=== PATIENT | male | born 1965 | race Caucasian/White ===

== ENCOUNTER 2016-06-07 08:59 | Emergency (ER) | payer OTHER ==
--- NOTE | 2016-06-07 09:08 | CPEKG ---
Heart Rate: 61 RR Interval: 984 P-R Interval: 116 QRSD Interval: 88 QT Interval: 412 QTC Interval: 415 P [place]: 75 QRS [place]: 85 T Wave [place]: -3 EKG Severity - NORMAL ECG - EKG Impression: SINUS RHYTHM Electronically Signed By: Shane Nathan 07-Jun-2016 15:07:19
--- NOTE | 2016-06-07 09:10 | EDPHY ---
HPI/HX/ROS/PE/MDM Narrative: CHIEF COMPLAINT: Palpitations, tachycardia. HPI: The patient is a 50-year-old male with a history of asthma who presents via EMS after an episode of palpitations and rapid heart rate. He was riding his bike to work this morning as he normally does when he felt his heart racing. He does have a history of similar symptoms but reports this felt worse than ever before. At [facility] his heart rate was 140. He admits associated diaphoresis and left-sided neck pain. On arrival to the ED his symptoms have completely subsided. He denies associated chest pain, shortness of breath, nausea, or other complaints. He denies medication changes. His grandfathers of an MD at age 66. REVIEW OF SYSTEMS: Aside from elements discussed in the HPI, a comprehensive 10-point review of systems was reviewed and is negative. PMH: Asthma. 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 PHYSICAL EXAM: General: Patient is alert, in no acute distress. ENT: Eyes are normal to inspection. ENT inspection normal. Neck: Normal inspection. Full range of motion. Respiratory: No respiratory distress. Breath sounds normal bilaterally. Cardiovascular: Regular rate and rhythm. Strong peripheral pulses. Abdomen: The abdomen is nontender to palpation. There are no peritoneal signs. There are normal bowel sounds. Back: Normal to inspection. No tenderness to palpation. Skin: Normal color. No rash. Warm and dry. Extremities: Normal appearance. Full range of motion. Neuro: Oriented x3. Normal motor function. Normal sensory function. Portions of this note were transcribed by an ED scribe. I personally performed the history, physical exam, and medical decision making; and confirm the accuracy of the information in the transcribed note. ED Course: 50-year-old male with no previous cardiac history presents after an episode of palpitations and tachycardia this morning that began when he was riding his bike. He did not have associated chest pain or shortness of breath. He went to [facility] where an EKG was taken that showed atrial fibrillation with a rate of 140 so he was sent here. He reports a history of similar symptoms but this episode felt the worse. On arrival his symptoms have completely subsided and he has no complaints. He physical exam is normal here. An IV was established and labs ordered including cardiac enzymes. Chest x-ray, EKG obtained. 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 EKG was ordered and interpreted by myself. Please see [employer] system for official reading. I independently reviewed the patient's imaging on the PACS system. Please see Imaging section for radiologist report. 1019: [facility] will see the patient SaturdayJune 11 at 12:45 PM. I have advised the patient to take a daily full-strength aspirin until then. MDM: This patient presents with an episode of irregular tachycardia that appears to represent rapid atrial fibrillation that has resolved prior to arrival. The patient has a negative workup in the emergency department including negative troponin. His EKG shows normal sinus rhythm here without ST changes. He has no symptoms to suggest PE, thoracic aortic dissection, thyroid storm or acute coronary syndrome. The patient is comfortable with the plan to be discharged and will follow up with an outpatient. He declines admission to the hospital today for further evaluation. I will advise him to take a full-strength aspirin as prophylaxis until he is evaluated by Cardiology. - Data Points Imaging Results: Imaging Impressions Chest X-Ray 06/07/16 09:13 Impression: Clear lungs. No acute process. Laboratory Results: Laboratory Results 06/07/16 09:00 06/07/16 09:00 06/07/16 06/07/16 09:00 09:00 WBC 4.52 10^3/uL 10^3/uL (3.80-9.50) RBC 5.24 10^6/uL 10^6/uL (4.40-6.38) Hgb 14.9 g/dL g/dL (13.7-17.5) Hct 44.8 % % (40.0-51.0) MCV 85.5 fL fL (81.5-99.8) MCH 28.4 pg pg (27.9-34.1) MCHC 33.3 g/dL g/dL (32.4-36.7) RDW 14.3 % % (11.5-15.2) Plt Count 192 10^3/uL 10^3/uL (150-400) MPV 11.5 fL fL (8.7-11.7) Neut % (Auto) 41.8 % % (39.3-74.2) Lymph % (Auto) 42.3 % % (15.0-45.0) [place] % (Auto) 7.1 % % (4.5-13.0) Eos % (Auto) 7.1 % % (0.6-7.6) Baso % (Auto) 1.5 % % (0.3-1.7) Nucleat RBC Rel Count 0.0 % % (0.0-0.2) Absolute Neuts (auto) 1.89 10^3/uL 10^3/uL (1.70-6.50) Absolute Lymphs (auto) 1.91 10^3/uL 10^3/uL (1.00-3.00) Absolute Monos (auto) 0.32 10^3/uL 10^3/uL (0.30-0.80) Absolute Eos (auto) 0.32 10^3/uL 10^3/uL (0.03-0.40) Absolute Basos (auto) 0.07 10^3/uL 10^3/uL (0.02-0.10) Absolute Nucleated RBC 0.00 10^3/uL 10^3/uL (0-0.01) Immature Gran % 0.2 % % (0.0-1.1) Immature Gran # 0.01 10^3/uL 10^3/uL (0.00-0.10) Sodium 144 mEq/L mEq/L (134-144) Potassium 4.1 mEq/L mEq/L (3.5-5.2) Chloride 108 mEq/L mEq/L (97-110) Carbon Dioxide 23 mEq/l mEq/l (22-31) Anion Gap 13 mEq/L mEq/L (8-16) BUN 27 mg/dL H mg/dL (7-23) Creatinine 1.2 mg/dL mg/dL (0.7-1.3) Estimated GFR > 60 Glucose 113 mg/dL H mg/dL (70-100) Calcium 9.8 mg/dL mg/dL (8.5-10.4) Troponin I < 0.012 ng/mL ng/mL (0-0.034) General Time Seen by Provider: 06/07/16 09:06 Initial Vital Signs: Initial Vital Signs Respiratory Rate 68 H 06/07/16 09:00 Blood Pressure 113/73 06/07/16 09:00 O2 Sat (%) 97 06/07/16 09:00 O2 Delivery Mode Room Air O2 (L/minute) 36.5 Allergies/Adverse Reactions: No Known Allergies Allergy (Verified 01/30/13 18:41) Home Medications: Medication Instructions Recorded NK [No Known Home Meds] 06/07/16 Departure - Departure Disposition: Home, Routine, Self-Care Clinical Impression: Atrial fibrillation Qualifiers: Atrial fibrillation type: unspecified Qualified Code(s): I48.91 - Unspecified atrial fibrillation Condition: Good Instructions: A-fib (Atrial Fibrillation) (ED) Additional Instructions: You have an appointment scheduled with Edna Osborn of [facility] on SaturdayJune 11 at 12:45 PM. You have been provided the telephone number of [facility] if you have any questions. Please take a daily full-strength aspirin until you have followed up with [facility]. Return to the emergency department if you experience any serious worsening of condition. Referrals: Edna Osborn PA [Physician Scada Technician] - As per Instructions [facility] [Provider Group] - As per Instructions Report Scribed for: Shane Nathan Report Scribed by: Breezy Galvez Date of Report: 06/07/16 Time of Report: 09:52
[2016-06-07 09:20] LABS: % IMMATURE GRANULYOCYTES 0.2 % (0.0-1.1); ABSOLUTE IMMATURE GRANULOCYTES 0.01 10^3/uL (0.00-0.10); ADD DIFF? NO; ADD MORPH? NO; ADD SCAN? NO; ATYPICAL LYMPHOCYTE FLAG 20 (0-99); FRAGMENT RBC FLAG 0 (0-99); HEMATOCRIT 44.8 % (40.0-51.0); HEMOGLOBIN 14.9 g/dL (13.7-17.5); LEFT SHIFT FLG 0 (0-99); LIPEMIA HEMOLYSIS FLAG 80 (0-99); MEAN CELL HEMOGLOBIN 28.4 pg (27.9-34.1); MEAN CELL HEMOGLOBIN CONCENTR. 33.3 g/dL (32.4-36.7); MEAN CELL VOLUME 85.5 fL (81.5-99.8); MEAN PLATELET VOLUME 11.5 fL (8.7-11.7); PLATELET CLUMPS FLAG 10 (0-99); PLATELET COUNT 192 10^3/uL (150-400); RED BLOOD CELL COUNT 5.24 10^6/uL (4.40-6.38); RED CELL DISTRIBUTION WIDTH 14.3 % (11.5-15.2)
[2016-06-07 09:42] LABS: ANION GAP 13 mEq/L (8-16); CALCIUM 9.8 mg/dL (8.5-10.4); CARBON DIOXIDE 23 mEq/l (22-31); CHLORIDE 108 mEq/L (97-110); CREATININE 1.2 mg/dL (0.7-1.3); GLOMERULAR FILTRATION RATE > 60; GLUCOSE 113 mg/dL (70-100); POTASSIUM 4.1 mEq/L (3.5-5.2); SODIUM 144 mEq/L (134-144)
[2016-06-07 09:51] LABS: TROPONIN I < 0.012 ng/mL (0-0.034)
[2016-06-07 10:37] VITALS: BP 107/76; PULSE 59; RESP 16; TEMP 98.2; O2SAT 98
== END 2016-06-07 10:46 | disposition home or self-care (01) ==
LOC: EDUNIT#
DX: I48.91 Unspecified atrial fibrillation (principal); J45.909 Unspecified asthma, uncomplicated

== ENCOUNTER → 2017-02-08 | Outpatient (CLI) | payer OTHER | LOC: FIMAGING 13:31 | PROVIDERS: ATTEND Emergency Medicine | DX: S43.101A Unspecified dislocation of right acromioclavicular joint, initial encounter (principal) ==